=== PATIENT | female | born 1940 ===

== ENCOUNTER → 2017-07-12 | Emergency (ER) | payer OTHER ==
[~2017-07-12] VITALS: Ht 154.9 cm; Wt 65.8 kg
[~2017-07-12] MED LIST: ALEVE220 M1 PO; ARICEPT5 MG; ASPIR 8181 MG; CEFADROXIL500 MG PO; CLOPIDOGREL BIS75 MG; DICLOFENAC SODI50 MG PO; GLIMEPIRIDE4 MG; LANTUS SOL100 UNIT/1; LIPITOR20 MG; LOSARTAN POTAS100 MG; METFORMIN HCL1000 M1; NEURONTIN600 MG; NOVOLIN 70100 UNIT/1; PERCOCET 5/3251 TAB PO; RANEXA500 MG; SYNTHROID100 MCG
== END | disposition home or self-care (01) ==
LOC: ER 14:41
DX: S60.454A Superficial foreign body of right ring finger, initial encounter (principal); R60.0 Localized edema; X58.XXXA Exposure to other specified factors, initial encounter; Y93.89 Activity, other specified; Y92.89 Other specified places as the place of occurrence of the external cause; Y99.8 Other external cause status

== ENCOUNTER 2017-11-28 15:47 | Emergency (ER) | payer OTHER ==
[~2017-11-28] VITALS: Ht 157.5 cm; Wt 67.6 kg
[2017-11-28] MEDS ORDERED: PAXIL20 MG (16:30)
[2017-11-28] MEDS ORDERED: AMLODIPINE BESYL5 MG (16:31)
== END 2017-11-28 22:54 | disposition home or self-care (01) ==
LOC: ER 15:47
DX: E11.649 Type 2 diabetes mellitus with hypoglycemia without coma (principal); R60.0 Localized edema

== ENCOUNTER 2018-03-13 16:15 | Emergency (ER) | payer OTHER ==
[~2018-03-13] VITALS: Ht 157.5 cm; Wt 65.8 kg
[~2018-03-13 16:15] MED LIST changes: +AMLODIPINE BESYL5 MG; +PAXIL20 MG
== END 2018-03-13 22:25 | disposition home or self-care (01) ==
LOC: ER 16:15
DX: N39.0 Urinary tract infection, site not specified (principal); E86.0 Dehydration; R10.84 Generalized abdominal pain; R11.2 Nausea with vomiting, unspecified

== ENCOUNTER 2020-11-10 18:46 | Emergency (ER) | payer OTHER ==
[~2020-11-10] VITALS: Ht 154.9 cm; Wt 59.0 kg
== END 2020-11-10 23:07 | disposition home or self-care (01) ==
LOC: ER 18:46
DX: S72.011A Unspecified intracapsular fracture of right femur, initial encounter for closed fracture (principal); S00.83XA Contusion of other part of head, initial encounter; W18.39XA Other fall on same level, initial encounter; Y93.89 Activity, other specified; Y92.098 Other place in other non-institutional residence as the place of occurrence of the external cause; Y99.8 Other external cause status

== ENCOUNTER 2020-11-11 16:13 | Inpatient (IN) | payer OTHER ==
[~2020-11-11] VITALS: Ht 154.9 cm; Wt 63.5 kg
--- NOTE | 2020-11-11 16:35 | NUR ---
SE RECIBE PTE FEMENINA ALERTA Y ORIENTADA EN [place] ESFERAS PROVENIENTE DE AMBULANCIA EN COMPANIA DE FAMILIAR REFIERE TRAUMA EN PIERNA L+, LUEGO DE CAIDA EN EL TARUN DE SHENG. PTE SE OSBERVA CON ABDOMEN DISTENDIDO FAMILIAR REFIERE LLEVA LIGHT ASI. PTE CON AMPUTACION DE PIERNA R+. SE UBICA PTE EN AREA DE OBSERVACION PARA EVALUACION MEDICA.
--- NOTE | 2020-11-11 16:49 | NUR ---
SE REALIZA EKG Y SE PRESETNA A DR. MAHARAJ.
== END 2020-11-17 17:36 | DRG 481 ==
LOC: ER 16:13 → SURG 17:04 → MEDI 17:04 → SURG 17:18 → SURH 11-14 15:37 → SURG 11-14 15:38 → SURH 11-14 15:39
PROVIDERS: Orthopaedic Surgery; ADMIT Internal Medicine; ATTEND Internal Medicine
PROC: 0QS604Z Reposition Right Upper Femur with Internal Fixation Device, Open Approach (ICD-10-PCS; principal; 2020-11-13 14:00)
PROC: 30233N1 Transfusion of Nonautologous Red Blood Cells into Peripheral Vein, Percutaneous Approach (ICD-10-PCS; 2020-11-15)
DX: S72.091A Other fracture of head and neck of right femur, initial encounter for closed fracture (principal); E87.1 Hypo-osmolality and hyponatremia; N39.0 Urinary tract infection, site not specified; W18.39XA Other fall on same level, initial encounter; E87.5 Hyperkalemia; D50.8 Other iron deficiency anemias; G30.9 Alzheimer's disease, unspecified; F02.80 Dementia in other diseases classified elsewhere, unspecified severity, without behavioral disturbance, psychotic disturbance, mood disturbance, and anxiety; F32.89 Other specified depressive episodes; Z20.822 Contact with and (suspected) exposure to COVID-19; Z89.511 Acquired absence of right leg below knee; E03.8 Other specified hypothyroidism; N18.9 Chronic kidney disease, unspecified; I13.10 Hypertensive heart and chronic kidney disease without heart failure, with stage 1 through stage 4 chronic kidney disease, or unspecified chronic kidney disease

== ENCOUNTER 2020-12-14 10:34 | Outpatient (CLI) | payer OTHER | END 2020-12-14 10:49 | disposition home or self-care (01) | LOC: RAD 10:34 | PROVIDERS: ATTEND Orthopaedic Surgery | DX: M25.551 Pain in right hip (principal); M25.512 Pain in left shoulder ==